=== PATIENT | female | born 1975 | race Two or more races ===

== ENCOUNTER 2025-05-18 17:08 | Emergency (ER) | payer OTHER ==
[~2025-05-18] VITALS: Ht 165.1 cm; Wt 85.0 kg
[2025-05-18 17:09] VITALS: BP 146/94; PULSE 74; RESP 16; TEMP 98; O2SAT 99
--- NOTE | 2025-05-18 18:33 | ED.PDOC ---
History of Present Illness HPI Comments 49 y/o [place] speaking F presents with son for c/c hypertension and bilateral leg pain. Per son, patient was referred to the ED by her home health nurse to r/o DVT after endorsing on worsening, constant pain to her legs over the past 9 months in addition to being found hypertensive following most recent home-visit check-up. Pain is sharp in quality and worse on the right and is exacerbated whenever bending of twisting her legs. No endorsement of any recent sick contacts, injuries, or long distance travel. Denial of any shortness of breath, chest pain, or further acute symptoms. Chief Complaint: Lower Extremity Time Seen by MD: 18:15 Reviewed Notes: Nurses Notes, Medications, Allergies Allergies: Coded Allergies: NO KNOWN ALLERGIES (Unverified , 05/18/25) Home Meds Active Scripts Elastic Bandages & Supports (Futuro Sheer Support Hose) Sheer Mis, UNITS EXT DAILY, #10 Prov:MELVI DHALIWAL MD 05/18/25 Ferrous Sulfate (FERROUS SULFATE) 325 Mg Tb, 1 TAB PO DAILY, #30 TAB 3 Refills Prov:MELVI DHALIWAL MD 05/18/25 Information Source: Patient, Relative (Child) Mode of Arrival: Ambulatory Past Medical History Past Medical History (Other): blind Surgical History: Denies all surgeries COLLAR STARCHER History: Denies all COLLAR STARCHER Hx Family History Family History: Unknown Social History Smoker: Non-Smoker Alcohol: Denies ETOH Use Drugs: Denies Drug Use Lives In: Home All Other Systems: Reviewed and Negative (Comprehensive systems review obtained and negative except for what is stated in the HPI.) Physical Exam General Appearance: No Apparent Distress, Obese HEENT: Normal ENT Inspection, Pharynx Normal, TMs Normal Neck: Full Range of Motion, Non-Tender, Normal, Normal Inspection Respiratory: Chest Non-Tender, Lungs Clear, No Accessory Muscle Use, No Respiratory Distress, Normal Breath Sounds Cardiovascular: No Edema, No JVD, No Murmur, No Gallop, Normal Peripheral Pulses, Regular Rate/Rhythm Breast Exam: Deferred Gastrointestinal: No Organomegaly, Non Tender, No Pulsatile Mass, Normal Bowel Sounds, Soft Genitalia: Deferred Pelvic: Deferred Rectal: Deferred Extremities: Leg edema (2+ bilateral lower extremity swelling ), No calf tenderness, Normal capillary refill, Normal range of motion, Non-tender Musculoskeletal : Apperance: Normal Neurologic: Alert, education program manager II-XII nml as Tested, No Motor Deficits, Normal Affect, Normal Mood, No Sensory Deficits Cerebellar Function: Normal Reflexes: Normal Skin: Dry, Normal Color, Warm Lymphatic: No Adenopathy Was a procedure done? Was a procedure done?: No Differential Dx Considerations may include: DVT, sprain, cellulitis, dermatitis, fluid retention, electrolyte imbalance, new onset of CHF, DJD, sciatica, among others X-Ray, Labs, Meds, VS Vital Signs Date Time Temp Pulse Resp B/P (MAP) Pulse Ox O2 Delivery O2 Flow Rate FiO2 05/18/25 17:09 98.0 74 16 146/94 99 98.0 Lab Test 05/18/25 18:07 Range/Units White Blood Count 5.8 4.4-10.8 10^3/uL Red Blood Count 4.21 4.0-5.20 10^6/uL Hemoglobin 9.6 L 12.2-16.2 g/dL Hematocrit 30.6 L 36.0-46.0 % Mean Corpuscular Volume 72.7 L 80.0-100.0 fL Mean Corpuscular Hemoglobin 22.8 L 28.0-32.0 pg Mean Corpuscular Hemoglobin Concent 31.4 L 32.0-36.0 g/dL Red Cell Distribution Width 17.7 H 11.8-14.3 % Platelet Count 414 140-450 10^3/uL Mean Platelet Volume 7.0 6.9-10.8 fL Neutrophils (%) (Auto) 61.4 37.0-80.0 % Lymphocytes (%) (Auto) 28.6 10.0-50.0 % Monocytes (%) (Auto) 7.1 0.0-12.0 % Eosinophils (%) (Auto) 2.4 0.0-7.0 % Basophils (%) (Auto) 0.5 0.0-2.0 % Neutrophils # (Auto) 3.6 1.6-8.6 10 ^3/uL Lymphocytes # (Auto) 1.7 0.4-5.4 10 ^3/uL Monocytes # (Auto) 0.4 0-1.3 10 ^3/uL Eosinophils # (Auto) 0.1 0-0.8 10 ^3/uL Basophils # (Auto) 0 0-0.2 10 ^3/uL Nucleated Red Blood Cells 0.1 % Sodium Level 140 136-145 mmol/L Potassium Level 4.0 3.5-5.1 mmol/L Chloride Level 105 98-107 mmol/L Carbon Dioxide Level 26 20-31 mmol/L Anion Gap 9 5-15 Blood Urea Nitrogen 14 9-23 mg/dL Creatinine 0.75 0.550-1.02 mg/dL Glomerular Filtration Rate Calc 97 >90 mL/min BUN/Creatinine Ratio 18.7 10.0-20.0 Serum Glucose 109 H 74-106 mg/dL Calcium Level 9.0 8.7-10.4 mg/dL Total Bilirubin 0.3 0.2-1.0 mg/dL Aspartate Amino Transferase (AST) 15 13-40 U/L Alanine Aminotransferase (ALT) 17 7-40 U/L Alkaline Phosphatase 119 H 46-116 U/L Troponin I High Sensitivity < 3 L </=34 ng/L B-Type Natriuretic Peptide 33.62 0-100 pg/mL Total Protein 6.8 5.7-8.2 g/dL Albumin 4.3 3.2-4.8 g/dL Time of 1ST Reevaluation: 18:45 Reevaluation 1ST: Unchanged Patient Education/Counseling: Diagnosis, Treatment Family Education/Counseling: Diagnosis, Treatment SEPSIS Sepsis Screen Date sepsis recognized/suspect: May 18, 2025 Time Sepsis recognized/suspect: 1710 Recent Procedure: No On Antibiotic Therapy: No Respiratory Rate >20: No Heart Rate >90: No Temp<36 C (96.8 F) or >38.3 C: No SBP <90 or MAP <65 mmHG: No New Acute Mental Status Change: No Is the patient on CPAP, BIPAP,: No Physician Orders Electrocardigram (05/18/25 18:00) Rt Lower Dvt (05/18/25 18:25) Vital Signs Date Time Temp Pulse Resp B/P (MAP) Pulse Ox O2 Delivery O2 Flow Rate FiO2 05/18/25 17:09 98.0 74 16 146/94 99 98.0 Laboratory Tests Test 05/18/25 18:07 White Blood Count 5.8 10^3/uL (4.4-10.8) Departure 1 Departure Time of Disposition: 20:30 Impression: Primary Impression: Iron deficiency anemia Additional Impression: Peripheral edema Disposition: HOME / SELF CARE / HOMELESS Condition: Stable e-Prescriptions Elastic Bandages & Supports (Futuro Sheer Support Hose) Sheer Mis UNITS EXT DAILY, #10 Prov: MELVI DHALIWAL MD 05/18/25 Ferrous Sulfate (FERROUS SULFATE) 325 Mg Tb 1 TAB PO DAILY, #30 TAB 3 Refills Prov: MELVI DHALIWAL MD 05/18/25 Discharged With: Self Critical Care Note Critical Care Time?: No Stability Stability form required: No Heart Score Heart Score: Heart Score Response (Comments) Value History N/A 0 EKG N/A 0 Age N/A 0 Risk Factors N/A 0 Troponin N/A 0 Total 0 I personally scribed for MELVI DHALIWAL MD ([email or web address]) on 05/18/25 at 18:33. Electronically submitted by Camilo Rhodes [email or web address]). MELVI DHALIWAL MD May 18, 2025 18:33
[2025-05-18 18:42] LABS: Hematocrit 30.6 % (36.0-46.0); Hemoglobin 9.6 g/dL (12.2-16.2); Mean Corpuscular Hemoglobin 22.8 pg (28.0-32.0); Mean Corpuscular Volume 72.7 fL (80.0-100.0); Nucleated Red Blood Cells % 0.1 %
[2025-05-18 18:49] LABS: Alanine Aminotransferase 17 U/L (7-40); Albumin 4.3 g/dL (3.2-4.8); Anion Gap 9 (5-15); BUN/Creatinine Ratio 18.7 (10.0-20.0); Blood Urea Nitrogen 14 mg/dL (9-23); Calcium 9.0 mg/dL (8.7-10.4); Carbon Dioxide 26 mmol/L (20-31); Chloride 105 mmol/L (98-107); Potassium 4.0 mmol/L (3.5-5.1); Sodium 140 mmol/L (136-145); Total Protein 6.8 g/dL (5.7-8.2)
[2025-05-18 18:50] LABS: Alkaline Phosphatase 119 U/L (46-116); Bilirubin, Total 0.3 mg/dL (0.2-1.0); Glucose 109 mg/dL (74-106)
--- NOTE | 2025-05-18 19:59 | DVH ---
RIGHT LOWER EXTREMITY VENOUS DOPPLER ULTRASOUND CLINICAL HISTORY: RLE pain / swelling COMPARISON: None TECHNIQUE: Grayscale ultrasound with compression, Color Doppler flow and duplex spectral Doppler son ography of the right lower extremity femoral popliteal deep venous system is performed. FINDINGS: Right common femoral vein: Negative. Right greater saphenous vein: Negative. Right deep femoral vein: Negative. Right femoral vein: Negative. Right popliteal vein: Negative. Other: Visualized popliteal trifurcation and posterior tibial vein demonstrate color flow. IMPRESSION: No sonographic evidence of deep venous thrombosis in the right lower extremity at this time.
[2025-05-18] MEDS ORDERED: FER325T PO (20:33)
[2025-05-18] MEDS ORDERED: ELAS-110 EXT (20:33)
== END 2025-05-18 21:44 | disposition home or self-care (01) ==
LOC: ER 17:08
DX: D50.9 Iron deficiency anemia, unspecified (principal); R60.9 Edema, unspecified; Z79.899 Other long term (current) drug therapy
CPT/HCPCS: 36415; 80053; 83880; 84484; 85025; 93971